=== PATIENT | male | born 1975 | race Caucasian/White ===

== ENCOUNTER 2016-12-23 23:16 | Inpatient (IN) | payer OTHER ==
[~2016-12-23] VITALS: Ht 177.8 cm; Wt 69.6 kg
--- NOTE | ~2016-12-23 | H ---
[facility] [place] [address] HISTORY AND PHYSICAL Name: JAY RODRIGUEZ Room #: 246-P [facility] IN ..#: [id number] Admission: 12/24/16 Attend Phys: Laureen Watkins MD Discharge: 12/24/16 Date of : 71 Report #: [id number] THIS REPORT FOR: //name// CC: PAUL physician/PCP Laureen Watkins DATE OF SERVICE: 12/24/2016 ATTENDING PHYSICIAN: Dr. Rivera. PRIMARY CARE PHYSICIAN: . CHIEF COMPLAINT: Suicidal thoughts. HISTORY OF PRESENT ILLNESS: The patient is a 41-year-old male who is an alcoholic. He apparently just went through a bad breakup and has been having increasing depression. His family has found him a few days ago with a loaded gun shortly after him sending a text message saying I love you. He went and saw his therapist and told him his plan, the gun was taken away and he continued to have suicidal thoughts. He has been drinking more heavily than usual. He had been on sober for about 4 months, but last week after his breakup he went back to drinking up to a pint of vodka per day. He drink more than that this evening and he was again found by his family sitting at home with several pills containers sitting in front of him. He denied taking the pills, but he was having thoughts about taking the overdose today, he had set the date as today to "finally do it." He denies any prior suicidal attempts, denies any homicidal thoughts. He was intoxicated on arrival to the ER, but cooperative and continues to be very depressed with suicidal thoughts. PAST MEDICAL HISTORY: Depression and gout. PAST SURGICAL HISTORY: Ankle repair. ALLERGIES: None. HOME MEDICATIONS: Ibuprofen p.r.n. Naprosyn p.r.n., [place] p.r.n., Wellbutrin 100 mg daily and Allopurinol 200 mg daily. SOCIAL HISTORY: The patient has drunk heavily for years, normally a pint of vodka per day. He does smoke 3-4 cigarettes per day as well. He smokes marijuana occasionally, but denies any other drug use. He lives alone. He does not have any children. He works as a clubhouse manager. FAMILY HISTORY: His mother is a live and has had breast cancer. REVIEW OF SYSTEMS: The patient denies any recent illnesses including nausea, [facility] [address] [place] [address] HISTORY AND PHYSICAL Name: JAY RODRIGUEZ Room #: 246-P [facility] IN [facility].#: [id number] Admission: 12/24/16 Attend Phys: Laureen Watkins MD Discharge: 12/24/16 Date of : 71 Report #: [id number] vomiting, diarrhea, fevers, or chills. Cough for congestion. All other 12-point review of systems was reviewed with the patient, otherwise negative unless stated in the HPI. PHYSICAL EXAMINATION: GENERAL: The patient is depressed appearing male in no acute distress. VITAL SIGNS: Temperature is 36.7, heart rate was 68, respirations 15, blood pressure is 141/90, and oxygen is 98% on room air. HEENT: PERRLA. Sclerae is nonicteric. Oral mucosa is pink and moist. NECK: Supple, no JVD noted. CARDIOVASCULAR: Normal S1, S2. No murmurs, rubs or gallops. RESPIRATORY: Breath sounds are clear bilaterally. No wheezing or rhonchi. Breathing is nonlabored. ABDOMEN: Soft, nontender, nondistended with positive bowel sounds. VASCULAR: No edema noted. Pedal pulses are 2+. PSYCHIATRIC: The patient is calm and cooperative but very depressed and tearful at times. LABORATORY DATA AND DIAGNOSTICS: WBC is 6.5, hemoglobin 15.0, and platelets 379. Sodium 140, potassium 3.1, BUN 8, and creatinine 1.1. Magnesium 2.1. AST was 53. Alcohol level was 404 and level is negative. A Tylenol level is negative. Urine drug screen was positive for marijuana. UA is negative. ASSESSMENT AND PLAN: 1. Suicidal ideation and depression. The patient did have a very specific plan and place to kill himself today. There is affidavit on the chart as he has been sending messages to his family saying I love you. He was too intoxicated to be evaluated by the melter operator so he has been admitted and once his alcohol level is normal, he should be able to be evaluated for inpatient psych. We will consult Psychiatry. We will keep him on 1:1. 2. Alcohol intoxification and abuse. At this point, he is not withdrawing, but he does have high potential to withdrawal. We will continue to monitor for any withdrawal symptoms and start banana bag. 3. Hypokalemia. This will be replaced. 4. Deep venous thrombosis prophylaxis. Place sequential compression devices. We will continue to follow the patient closely throughout the hospitalization and make changes based on clinical status. <ELECTRONICALLY SIGNED> By: SAMMY Reyes 12/25/16 [id number] SAMMY Reyes /nt
[~2016-12-23 23:16] MED LIST: ALEVE220 MG PO; IBUPROFEN 600600 M1 PO; NOHOMEMEDICATIONS; NORCO 5-325 TA1 EACH PO; WELLBUTRIN 100100 MG
[2016-12-23 23:22] VITALS: BP 141/90
[2016-12-23 23:30] VITALS: BP 141/90
[2016-12-23 23:30] LABS: URINE BILIRUBIN NEGATIVE (Negative); URINE BLOOD NEGATIVE (Negative); URINE COLOR YELLOW; URINE GLUCOSE-RANDOM* NEGATIVE (Negative); URINE KETONES NEGATIVE (Negative); URINE LEUKOCYTES-REFLEX NEGATIVE (Negative); URINE PROTEIN (DIPSTICK) NEGATIVE (Negative); URINE SPECIFIC GRAVITY <= 1.005 (1.003-1.035); URINE UROBILINOGEN 0.2 E.U./dl (0.2-1.0)
[2016-12-23] MEDS ORDERED: ALLOPURINOL 10100 M1 (23:33)
[2016-12-23] MEDS ORDERED: PERCOCET PO (23:34)
[2016-12-23 23:36] LABS: AMP/METHAMP Negative (Negative); BARBITURATES Negative (Negative); BENZODIAZEPINES Negative (Negative); COCAINE Negative (Negative); METHADONE Negative (Negative); OPIATES Negative (Negative); PCP Negative (Negative); THC POSITIVE (Negative)
[2016-12-23 23:49] LABS: HEMATOCRIT 43.1 % (42.0-52.0); MCH 32.4 pg (26.0-34.0); MCHC 34.8 g/dL (28.0-37.0); MCV 93.1 fL (80.0-100.0); RBC 4.63 mil/uL (4.50-6.00); RDW 12.6 % (10.5-14.5); WBC 6.5 thou/uL (4.0-11.0)
[2016-12-23 23:57] LABS: ANION GAP 12 mmol/L (7-16); BUN 8 mg/dL (7-18); CALCIUM 9.3 mg/dL (8.5-10.1); CHLORIDE 100 mmol/L (98-107); CO2 28 mmol/L (21-32); CREATININE 1.1 mg/dL (0.7-1.3); GLUCOSE 89 mg/dL (74-106); POTASSIUM 3.1 mmol/L (3.5-5.1); SALICYLATE < 2.8 mg/dL (2.8-20.0); SODIUM 140 mmol/L (136-145)
[2016-12-23 23:59] LABS: ACETAMINOPHEN < 2 ug/mL (10-30)
[2016-12-24] VITALS (8 sets, daily range): BP systolic 105–137; BP diastolic 57–83
[2016-12-24 03:27] LABS: ALBUMIN 4.2 g/dL (3.4-5.0); DIRECT BILIRUBIN 0.1 mg/dL (<0.1-0.3); TOTAL BILIRUBIN 0.4 mg/dL (<0.1-1.0); TOTAL PROTEIN 7.7 g/dL (6.4-8.2)
[2016-12-25 20:11] LABS: TRICYCLIC (TCA) CONFIRMATION Negative ng/mL (Cutoff=100)
== END 2016-12-24 23:54 | disposition short-term general hospital (02) | DRG 897 ==
LOC: ER 23:16 → EROBS 12-24 01:16 → ICU 12-24 01:16
PROVIDERS: Emergency Medicine; Nurse Practitioner Acute Care
DX: F10.129 Alcohol abuse with intoxication, unspecified (principal); R45.851 Suicidal ideations; F32.9 Major depressive disorder, single episode, unspecified; F17.210 Nicotine dependence, cigarettes, uncomplicated; M10.9 Gout, unspecified; F12.90 Cannabis use, unspecified, uncomplicated; Z60.2 Problems related to living alone; E87.6 Hypokalemia; Z79.899 Other long term (current) drug therapy; Z80.3 Family history of malignant neoplasm of breast
CPT/HCPCS: 10203

== ENCOUNTER 2017-02-24 19:32 | Inpatient (IN) | payer OTHER ==
[~2017-02-24] VITALS: Ht 177.8 cm; Wt 81.0 kg
[~2017-02-24 19:32] MED LIST changes: +ALLOPURINOL 10100 M1; +PERCOCET PO
[2017-02-24 19:35] VITALS: BP 128/91
[2017-02-24 20:36] LABS: ABSOLUTE NEUTROPHILS 5.1 thou/uL (1.4-8.2); BASOPHILS 0.6 % (0.0-2.0); EOSINOPHILS 3.1 % (0.0-3.0); HEMATOCRIT 43.2 % (42.0-52.0); HEMOGLOBIN 14.8 gm/dL (14.0-18.0); LYMPHOCYTES 26.8 % (24.0-44.0); MCH 32.6 pg (26.0-34.0); MCHC 34.3 g/dL (28.0-37.0); MCV 95.2 fL (80.0-100.0); MONOCYTES 6.8 % (1.0-8.0); PLATELET COUNT 366 thou/uL (150-400); POLYS 62.7 % (36.0-66.0); RBC 4.54 mil/uL (4.50-6.00); RDW 13.4 % (10.5-14.5); WBC 8.1 thou/uL (4.0-11.0)
[2017-02-24 20:40] LABS: MANUAL DIFF NO
[2017-02-24 20:43] LABS: ANION GAP 8 mmol/L (7-16); BUN 14 mg/dL (7-18); CALCIUM 9.3 mg/dL (8.5-10.1); CHLORIDE 105 mmol/L (98-107); CO2 30 mmol/L (21-32); CREATININE 1.1 mg/dL (0.7-1.3); GLUCOSE 58 mg/dL (74-106); POTASSIUM 3.7 mmol/L (3.5-5.1); SODIUM 143 mmol/L (136-145)
[2017-02-24 20:47] LABS: SALICYLATE < 2.8 mg/dL (2.8-20.0)
[2017-02-24 20:48] LABS: ACETAMINOPHEN < 2 ug/mL (10-30)
[2017-02-24] MEDS ORDERED: COLCHICINE0.6 MG PO (22:56)
[2017-02-25 00:50] VITALS: BP 140/83
[2017-02-25 02:55] LABS: MAGNESIUM 2.1 mg/dL (1.8-2.4); PHOSPHORUS 3.9 mg/dL (2.5-4.9)
[2017-02-25 05:40] VITALS: BP 136/79
[2017-02-25 05:50] LABS: FOLIC ACID 3.5 ng/mL (8.6-58.9)
[2017-02-25 05:55] LABS: CALCIUM 7.9 mg/dL (8.5-10.1)
[2017-02-25 08:00] VITALS: BP 145/89
[2017-02-25 15:30] VITALS: BP 145/83
[2017-02-25 19:52] VITALS: BP 130/71
[2017-02-25 20:34] LABS: AMP/METHAMP Negative (Negative); BARBITURATES Negative (Negative); BENZODIAZEPINES Negative (Negative); COCAINE Negative (Negative); METHADONE Negative (Negative); OPIATES Negative (Negative); PCP Negative (Negative); THC POSITIVE (Negative)
[2017-02-26 05:15] VITALS: BP 135/87
[2017-02-26 06:11] LABS: HEMATOCRIT 38.8 % (42.0-52.0); HEMOGLOBIN 13.2 gm/dL (14.0-18.0); MCH 32.4 pg (26.0-34.0); MCV 95.3 fL (80.0-100.0); RBC 4.07 mil/uL (4.50-6.00); RDW 13.7 % (10.5-14.5); WBC 4.5 thou/uL (4.0-11.0)
[2017-02-26 06:32] LABS: CREATININE 1.1 mg/dL (0.7-1.3); POTASSIUM 3.7 mmol/L (3.5-5.1)
[2017-02-26 08:00] VITALS: BP 143/90
[2017-02-26] MEDS ORDERED: VITAMIN B-1100 M2 PO (11:57)
[2017-02-26] MEDS ORDERED: PRENATAL PO (11:58)
== END 2017-02-26 16:18 | DRG 917 ==
LOC: ER 19:32 → EROBS 23:36 → 4S 23:36
PROVIDERS: Emergency Medicine; Nurse Practitioner Family
DX: T44.3X2A Poisoning by other parasympatholytics [anticholinergics and antimuscarinics] and spasmolytics, intentional self-harm, initial encounter (principal); G92 Toxic encephalopathy; R45.851 Suicidal ideations; F10.129 Alcohol abuse with intoxication, unspecified; F32.9 Major depressive disorder, single episode, unspecified; F17.210 Nicotine dependence, cigarettes, uncomplicated; F12.90 Cannabis use, unspecified, uncomplicated; Z79.899 Other long term (current) drug therapy; Y92.098 Other place in other non-institutional residence as the place of occurrence of the external cause
CPT/HCPCS: 10100